=== PATIENT | male | born 1955 | race Caucasian/White ===

== ENCOUNTER 2017-06-06 15:57 | Inpatient (IN) | payer OTHER ==
[~2017-06-06] VITALS: Ht 188 cm; Wt 130.2 kg
--- NOTE | ~2017-06-06 | EKG ---
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: JARRET : 1955 Requested By: Cristofer Wyman Order Number: [id number] MD: Dallin Chung Measurements Intervals [place] Rate: 75 P: 56 [place]: 224 QRS: -11 QRSD: 92 T: 48 QT: 394 QTc: 441 Interpretive Statements Sinus rhythm Prolonged [place] interval Low voltage, extremity and precordial leads Compared to ECG 08/27/2013 18:38:21 No significant changes Electronically Signed On 06-07-2017 8:35:11 CDT by Dallin Chung [email or web address] <ELECTRONICALLY SIGNED> By: Dallin Chung MD, [facility] 06/07/17 0835 0636 Dallin Chung MD, [facility] /EPI
--- NOTE | ~2017-06-06 | D ---
[facility] [place] [address] DISCHARGE SUMMARY Name: MAXIMUS DRISCOLL Room #: 219-P [facility] IN ..#: [id number] Admission: 06/06/17 Attend Phys: Cristofer Wyman MD, Discharge: 06/07/17 Date of : 59 Report #: [id number] THIS REPORT FOR: //name// CC: VENICE Santillan MD DATE OF SERVICE: 06/07/2017 SUMMARY OF HOSPITAL STAY: The patient is a 61-year-old male sent up for evaluation of some accelerating anginal pattern. Subsequently, he was taken to the Catheterization Lab at [facility] with nearly normal LV function and found to have a high-grade subtotaled LAD 99% with slow flow. He was transferred urgently to the laborer shaft sinking at [facility] where a 3.0 x 12 Resolute drug-eluting stent was placed, postdilated to 3.3 mm in size, yielding GUERRERO grade 3 flow and no dissection or thrombus formation. He has done well postoperatively. He is voicing no complaints. He states he feels much better. There is no groin hematoma. He will be discharged on aspirin and Plavix. He will do antiplatelet therapy for a year, a full aspirin for a month and then may reduce to a baby. Lipitor, gabapentin, levothyroxine, lisinopril 5, Robaxin, omeprazole, ranitidine, MS Contin, vitamin D3, atorvastatin 40 at some point that apparently had gotten stopped. A low-fat, low-sodium, cholesterol diet. No lifting for 48 hours. No MRI or dental work for 3 months, but he tells me he has no teeth, so we do not need to worry about dental work. He will call with any issues. He will follow up in the [facility]. He will call with any issues. DISCHARGE DIAGNOSES: 1. Chronic obstructive pulmonary disease with successful percutaneous transluminal coronary angioplasty stent of the proximal descending, the 3.0 x 12 Resolute drug-eluting stent. 2. Mild ischemic cardiomyopathy, which should completely normalized if ejection fraction is near normal, 55-60%. 3. Hypertension. 4. Hypercholesterolemia. 5. Chronic pain with prior cerebrovascular accident. 6. Degenerative joint disease. By: 0838 1332 Cristofer Wyman MD, FACC /nt
--- NOTE | ~2017-06-06 | EKG ---
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: Monalisa JARVIS : 1955 Requested By: Cristofer Wyman Order Number: [id number] MD: Dallin Chung Measurements Intervals [place] Rate: 71 P: -22 [place]: 213 QRS: -13 QRSD: 85 T: 42 QT: 390 QTc: 424 Interpretive Statements Sinus rhythm Prolonged [place] interval Possible Inferior infarct, old Compared to ECG 08/27/2013 18:38:21 No significant change was found Electronically Signed On 06-07-2017 8:21:56 CDT by Dallin Chung [email or web address] <ELECTRONICALLY SIGNED> By: Dallin Chung MD, [facility] 06/07/17 0821 1741 1741 Dallin Chung MD, [facility] /EPI
[~2017-06-06 15:57] MED LIST: CELEXA40 MG PO; DELTA D3400 UNIT PO; ENABLEX 7.5 MG7.5 M1 PO; FELDENE20 MG PO; GABAPENTIN800 M1 PO; GLUCOPHAGE1000 MG PO; KLOR-CON 1010 MEQ PO; LASIX 20 MG TAB20 MG PO; LISINOPRIL5 MG PO; MEDLISTUNAVAIL; MS CONTIN 30 MG30 M1 PO; MS CONTIN60 MG PO; OXYCODONE HCL20 M1 PO; PRILOSEC40 MG PO; ROBAXIN 750 MG750 M1 PO; SYNTHROID75 MCG PO; VITAMIN D PO; ZANTAC 150MG T150 MG PO
[2017-06-06 17:00] VITALS: BP 109/65
[2017-06-06 17:11] VITALS: BP 109/65
[2017-06-06 17:15] VITALS: BP 109/60
[2017-06-06 17:30] VITALS: BP 109/60
[2017-06-06 17:45] VITALS: BP 110/65
[2017-06-06 19:50] VITALS: BP 102/67
[2017-06-07 00:35] VITALS: BP 105/68
[2017-06-07 04:16] LABS: HEMOGLOBIN 11.9 gm/dL (14.0-18.0); MCH 30.3 pg (26.0-34.0); MCHC 33.8 g/dL (28.0-37.0); MCV 89.6 fL (80.0-100.0); RBC 3.91 mil/uL (4.50-6.00); RDW 13.9 % (10.5-14.5)
[2017-06-07 04:30] LABS: CREATININE 1.1 mg/dL (0.7-1.3); POTASSIUM 4.3 mmol/L (3.5-5.1); TROPONIN-I 0.04 ng/mL (<0.06)
[2017-06-07 04:50] VITALS: BP 114/81; BP 99/66
[2017-06-07 07:56] VITALS: BP 105/66
[2017-06-07] MEDS ORDERED: CLOPIDOGREL75 MG PO (08:34)
[2017-06-07] MEDS ORDERED: ASPIRIN325 PO (08:34)
[2017-06-07] MEDS ORDERED: ATORVASTATIN CA40 MG PO (08:37)
[2017-06-07 10:58] VITALS: BP 105/66
== END 2017-06-07 12:03 | disposition home health service (06) | DRG 247 ==
LOC: TBACV 15:57 → 2N 16:05 → TBACV 16:05 → 2N 16:51
PROVIDERS: Internal Medicine Cardiovascular Disease
PROC: 027034Z Dilation of Coronary Artery, One Artery with Drug-eluting Intraluminal Device, Percutaneous Approach (ICD-10-PCS; principal; 2017-06-07)
DX: I25.5 Ischemic cardiomyopathy (principal); J44.9 Chronic obstructive pulmonary disease, unspecified; I10 Essential (primary) hypertension; E78.00 Pure hypercholesterolemia, unspecified; G89.29 Other chronic pain; M19.90 Unspecified osteoarthritis, unspecified site; Z86.73 Personal history of transient ischemic attack (TIA), and cerebral infarction without residual deficits
CPT/HCPCS: 10797